=== PATIENT | female | born 1995 | race Caucasian/White ===

== ENCOUNTER 2018-09-05 15:34 | Emergency (ER) | payer MEDICAID, OTHER ==
[~2018-09-05] VITALS: Ht 160 cm; Wt 58.2 kg
[2018-09-05 15:36] VITALS: BP 130/62
[2018-09-05] MEDS ORDERED: LIDOcaine 1.5% w/epinephrine 1:200,000 5ml ampul IJ ONE (17:10)
[2018-09-05] MEDS ORDERED: LORazepam 0.5 MG tablet PO PRN (17:15)
[2018-09-05] MEDS ORDERED: LIDOcaine 1% w/EPI 1:100,000 30ml vial (MDV) IJ ONE (17:15)
== END 2018-09-05 17:42 | disposition home or self-care (01) ==
LOC: ER 15:35
DX: S51.811A Laceration without foreign body of right forearm, initial encounter (principal); X58.XXXA Exposure to other specified factors, initial encounter; Y93.89 Activity, other specified; Y92.89 Other specified places as the place of occurrence of the external cause; Y99.8 Other external cause status
CPT/HCPCS: 99282; J3490

== ENCOUNTER 2019-01-16 10:16 | Emergency (ER) | payer MEDICAID ==
[~2019-01-16] VITALS: Ht 160 cm; Wt 60.9 kg
[2019-01-16 10:27] VITALS: BP 140/87
[2019-01-16 12:07] LABS: URINE HCG NEGATIVE (NEG)
[2019-01-16] MEDS ORDERED: ibuprofen 200mg tablet PO ONE (12:30)
== END 2019-01-16 13:18 | disposition home or self-care (01) ==
LOC: ER 10:17
DX: S30.0XXA Contusion of lower back and pelvis, initial encounter (principal); S60.221A Contusion of right hand, initial encounter; S50.02XA Contusion of left elbow, initial encounter; S50.01XA Contusion of right elbow, initial encounter; F17.210 Nicotine dependence, cigarettes, uncomplicated; Y04.0XXA Assault by unarmed brawl or fight, initial encounter; Y93.89 Activity, other specified; Y92.89 Other specified places as the place of occurrence of the external cause; Y99.9 Unspecified external cause status
CPT/HCPCS: 72220; 73130; 81025; 99284